=== PATIENT | female | born 1940 | race Caucasian/White ===

== ENCOUNTER 2019-03-25 01:04 | Outpatient (CLI) | payer OTHER, SELFPAY ==
--- NOTE | 2019-03-25 11:09 | DI.MAMMO_ITS ---
SYMPTOM/DIAGNOSIS: SCREENING Z12.31 MAMMOGRAM: 03/25 Mammograms were interpreted according to the usual protocol including computer analysis with CAD system, tomosynthesis and C view imaging. The breasts are of moderate density with fairly symmetrical distribution of fibroglandular tissue. No dominant mass or clumped microcalcification is identified in either breast. The current examination is compared with previous examinations including 02/2017 and there has been no gross interval change in appearance in comparison with the previous studies. CONCLUSION: No specific evidence of malignancy at this time. Routine screening examinations are suggested at yearly intervals in this age group according to the ACS/ACR guidelines. Category 1, breast density category B. MQSA ASSESSMENT OF FINDINGS: Negative. Category 1. Patient will receive a letter notifying them of these results. BI-RADS category B. There are scattered areas of fibroglandular density.
== END 2019-03-25 01:24 ==
PROVIDERS: PCP Internal Medicine; Visit Provider Nurse Practitioner Family
DX: Z12.31 Encounter for screening mammogram for malignant neoplasm of breast (principal)
CPT/HCPCS: 77063; 77067

== ENCOUNTER 2019-09-06 09:17 | Outpatient (REF) | payer OTHER, SELFPAY ==
[2019-09-06 21:36] LABS: Calculated LDL 133 mg/dL; Cholesterol 217 mg/dL (<200); HDL Cholesterol 58 mg/dL (40-60); TSH (W/Ref FT4) 4.38 uIU/mL (0.36-3.74); Triglyceride 132 mg/dL (<150)
[2019-09-06 22:00] LABS: FREE T4 0.87 ng/dL (0.76-1.46)
== END 2019-09-06 09:37 ==
LOC: NCHCN 09:17
PROVIDERS: Family Medicine; PCP Internal Medicine; Visit Provider Internal Medicine
DX: I16.0 Hypertensive urgency (principal); R06.00 Dyspnea, unspecified; R06.02 Shortness of breath
CPT/HCPCS: 80061; 84439; 84443

== ENCOUNTER 2020-11-08 22:20 | Outpatient (REF) | payer OTHER, SELFPAY ==
[2020-11-08 22:37] LABS: Anion Gap 9.8 mmol/L (3-11); BUN 19 mg/dL (7-18); CO2 29.2 mmol/L (21.0-32.0); CREATININE 0.8 mg/dL (0.55-1.02); Calcium 9.3 mg/dL (8.5-10.1); Chloride 105 mmol/L (98-107); Glucose 109 mg/dL (74-106); Potassium 4.3 mmol/L (3.5-5.1); Sodium 144 mmol/L (136-145); TSH (W/Ref FT4) 2.53 uIU/mL (0.36-3.74)
== END 2020-11-08 22:21 | disposition home or self-care (01) ==
LOC: NCHCN 22:20
PROVIDERS: PCP Internal Medicine; Visit Provider Internal Medicine
DX: I10 Essential (primary) hypertension (principal); Z00.00 Encounter for general adult medical examination without abnormal findings; E03.9 Hypothyroidism, unspecified
CPT/HCPCS: 80048; 84443

== ENCOUNTER 2020-11-16 18:28 | Outpatient (REF) | payer OTHER, SELFPAY ==
[2020-11-16 21:14] LABS: Hemoglobin A1C 5.7 % (<5.7)
[2020-11-16 22:02] LABS: Vitamin B12 153 pg/mL (193-986)
== END 2020-11-16 18:29 | disposition home or self-care (01) ==
LOC: NCHCN 18:28
PROVIDERS: PCP Internal Medicine; Visit Provider Internal Medicine
DX: R41.3 Other amnesia (principal); R73.03 Prediabetes
CPT/HCPCS: 82607; 83036

== ENCOUNTER 2020-12-20 11:49 | Outpatient (REF) | payer OTHER, SELFPAY ==
[2020-12-20 14:04] LABS: Vitamin B12 711 pg/mL (193-986)
== END 2020-12-20 11:50 | disposition home or self-care (01) ==
LOC: NCHCN 11:49
PROVIDERS: PCP Internal Medicine; Visit Provider Internal Medicine
DX: E53.8 Deficiency of other specified B group vitamins (principal)
CPT/HCPCS: 82607

== ENCOUNTER 2021-11-09 15:48 | Outpatient (REF) | payer OTHER, SELFPAY ==
[2021-11-09 17:30] LABS: Anion Gap 8.1 mmol/L (3-11); BUN 22 mg/dL (7-18); CO2 28.9 mmol/L (21.0-32.0); CREATININE 0.7 mg/dL (0.55-1.02); Calculated LDL 114 mg/dL (<100); Chloride 105 mmol/L (98-107); Cholesterol 205 mg/dL (<200); Glucose 114 mg/dL (74-106); HDL Cholesterol 60 mg/dL (40-60); Sodium 142 mmol/L (136-145); Triglyceride 159 mg/dL (<150)
[2021-11-09 17:31] LABS: Hemoglobin A1C 5.6 % (<5.7)
== END 2021-11-09 15:49 | disposition home or self-care (01) ==
LOC: NCHCN 15:48
PROVIDERS: PCP Internal Medicine; Visit Provider Internal Medicine
DX: I10 Essential (primary) hypertension (principal); R73.09 Other abnormal glucose; R79.89 Other specified abnormal findings of blood chemistry
CPT/HCPCS: 80048; 80061; 83036

== ENCOUNTER 2023-01-20 12:36 | Outpatient (REF) | payer MEDICARE, SELFPAY ==
[2023-01-20 15:24] LABS: Hemoglobin A1C 5.7 % (<5.7)
[2023-01-20 15:41] LABS: Anion Gap 8.2 mmol/L (3-11); BUN 17 mg/dL (7-18); CO2 30.8 mmol/L (21.0-32.0); CREATININE 0.8 mg/dL (0.55-1.02); Calculated LDL 105 mg/dL (<100); Chloride 103 mmol/L (98-107); Cholesterol 189 mg/dL (<200); Estimated GFR 74.44 (mL/min/1.73m2); Glucose 116 mg/dL (74-106); HDL Cholesterol 66 mg/dL (40-60); Potassium 3.6 mmol/L (3.5-5.1); Sodium 142 mmol/L (136-145); Triglyceride 93 mg/dL (<150); Vitamin B12 453 pg/mL (193-986)
== END 2023-01-20 12:37 | disposition home or self-care (01) ==
LOC: NCHCN 12:36
PROVIDERS: PCP Internal Medicine; Visit Provider Internal Medicine
DX: I10 Essential (primary) hypertension (principal); E53.8 Deficiency of other specified B group vitamins; G31.84 Mild cognitive impairment of uncertain or unknown etiology; R73.03 Prediabetes
CPT/HCPCS: 80048; 80061; 82607; 83036

== ENCOUNTER 2023-03-26 15:18 | Outpatient (REF) | payer MEDICARE, SELFPAY ==
[2023-03-26 18:25] LABS: HCT 40.2 % (36.0-46.0); MCHC 32.3 % (32.0-36.0); MCV 90 fL (80-95); MPV 10.1 fL (8.0-11.0); Platelet Count 446 10^3/uL (130-400); RBC 4.48 10^6/uL (3.93-5.22); RDW 13.2 % (11.7-14.6); RDW-SD 43.5 fL
[2023-03-26 18:26] LABS: Uric Acid 3.9 mg/dL (2.6-6.0)
[2023-03-26 18:28] LABS: ESR 37 mm/hr (0-30)
== END 2023-03-26 15:19 | disposition home or self-care (01) ==
LOC: NCHCN 15:18
PROVIDERS: PCP Internal Medicine; Visit Provider Family Medicine
DX: M79.89 Other specified soft tissue disorders (principal)
CPT/HCPCS: 85027; 85652; 84550; 85025; 86140

== ENCOUNTER 2024-05-11 21:56 | Outpatient (REF) | payer MEDICARE, SELFPAY ==
[2024-05-11 22:32] LABS: Hemoglobin A1C 5.7 % (<5.7)
[2024-05-11 22:49] LABS: Anion Gap 8.5 mmol/L (3-11); BUN 15 mg/dL (7-18); CO2 27.5 mmol/L (21.0-32.0); CREATININE 0.7 mg/dL (0.55-1.02); Calcium 9.2 mg/dL (8.5-10.1); Chloride 104 mmol/L (98-107); Estimated GFR 86.83 (mL/min/1.73m2); Glucose 157 mg/dL (74-106); Potassium 3.8 mmol/L (3.5-5.1); Sodium 140 mmol/L (136-145); TSH (W/Ref FT4) 1.45 uIU/mL (0.36-3.74); Vitamin D 25 Total 22.4 ng/mL (30-100)
== END 2024-05-11 21:57 | disposition home or self-care (01) ==
LOC: NCHCN 21:56
PROVIDERS: PCP Internal Medicine; Visit Provider Family Medicine
DX: E03.9 Hypothyroidism, unspecified (principal); I10 Essential (primary) hypertension; E55.9 Vitamin D deficiency, unspecified; R73.03 Prediabetes
CPT/HCPCS: 80048; 82306; 83036; 84443